=== PATIENT | female | born 1960 | race Two or more races ===

== ENCOUNTER 2018-06-16 07:30 | Outpatient (CLI) | payer OTHER ==
[~2018-06-16 07:30] MED LIST: MECLIZINE HCL25 MG PO; PERCOCET 5/3251 TAB PO
== END 2018-06-16 08:51 | disposition home or self-care (01) ==
LOC: LAB 07:30
DX: R51 Headache (principal); M62.830 Muscle spasm of back; R06.02 Shortness of breath; I10 Essential (primary) hypertension; Z13.89 Encounter for screening for other disorder

== ENCOUNTER 2018-06-16 07:37 | Outpatient (CLI) | payer OTHER | END 2018-06-16 08:51 | disposition home or self-care (01) | LOC: RAD 07:37 | DX: R51 Headache (principal); M62.830 Muscle spasm of back; R06.02 Shortness of breath ==

== ENCOUNTER 2018-10-06 10:40 | Outpatient (CLI) | payer OTHER | END 2018-10-06 10:51 | disposition home or self-care (01) | LOC: RAD 10:40 | DX: M25.561 Pain in right knee (principal); M25.562 Pain in left knee ==

== ENCOUNTER 2018-10-15 11:24 | Inpatient (IN) | payer OTHER ==
[~2018-10-15] VITALS: Ht 167.6 cm; Wt 98.9 kg
[2018-10-30] MEDS ORDERED: LOSARTAN-HCTZ1 EACH PO (07:58)
[2018-11-14] MEDS ORDERED: NORFLEX100MG PO (09:53)
[2018-11-14] MEDS ORDERED: OXYC1TAB9 PO (09:53)
[2018-11-14] MEDS ORDERED: NeurRONTin 100mg cap PO (09:53)
[2018-11-14] MEDS ORDERED: XARELTO10 MG PO (09:53)
== END 2018-11-14 18:16 | disposition home or self-care (01) | DRG 470 ==
LOC: O/R 11-11 06:19 → SURG 11-11 06:19 → SURH 11-11 07:15 → SURG 11-11 12:03
PROVIDERS: ADMIT Orthopaedic Surgery
PROC: 0SRC0J9 Replacement of Right Knee Joint with Synthetic Substitute, Cemented, Open Approach (ICD-10-PCS; principal; 2018-11-11 09:45)
DX: M17.11 Unilateral primary osteoarthritis, right knee (principal); D62 Acute posthemorrhagic anemia; G51.0 Bell's palsy; M54.89 Other dorsalgia; I10 Essential (primary) hypertension

== ENCOUNTER 2018-10-25 07:19 | Outpatient (CLI) | payer OTHER | END 2018-10-25 07:31 | disposition home or self-care (01) | LOC: LAB 07:19 | DX: D68.8 Other specified coagulation defects (principal); E78.2 Mixed hyperlipidemia; N39.0 Urinary tract infection, site not specified; R07.89 Other chest pain ==

== ENCOUNTER 2019-01-24 08:29 | Outpatient (CLI) | payer OTHER ==
[~2019-01-24 08:29] MED LIST changes: +LOSARTAN-HCTZ1 EACH PO; +NORFLEX100MG PO; +NeurRONTin 100mg cap PO; +OXYC1TAB9 PO; +XARELTO10 MG PO
== END 2019-01-24 09:01 | disposition home or self-care (01) ==
LOC: RAD 08:29
DX: M25.561 Pain in right knee (principal); M25.562 Pain in left knee

== ENCOUNTER 2019-05-14 16:49 | Outpatient (CLI) | payer OTHER | END 2019-05-14 17:17 | disposition home or self-care (01) | LOC: RAD 16:49 | DX: M54.5 Low back pain (principal); M79.671 Pain in right foot; G62.89 Other specified polyneuropathies; M25.551 Pain in right hip; M25.552 Pain in left hip ==

== ENCOUNTER → 2019-10-21 07:08 | Outpatient (CLI) | payer OTHER | END | disposition home or self-care (01) | LOC: LAB 07:08 | DX: I10 Essential (primary) hypertension (principal); Z76.0 Encounter for issue of repeat prescription; Z13.220 Encounter for screening for lipoid disorders; Z13.1 Encounter for screening for diabetes mellitus; Z12.11 Encounter for screening for malignant neoplasm of colon; Z12.39 Encounter for other screening for malignant neoplasm of breast ==

== ENCOUNTER 2019-11-19 13:10 | Outpatient (CLI) | payer OTHER | END 2019-11-19 13:20 | disposition home or self-care (01) | LOC: RAD 13:10 | DX: E78.2 Mixed hyperlipidemia (principal); M25.562 Pain in left knee; E11.69 Type 2 diabetes mellitus with other specified complication; M79.671 Pain in right foot ==

== ENCOUNTER 2020-04-04 12:38 | Outpatient (CLI) | payer OTHER | END 2020-04-04 12:50 | disposition home or self-care (01) | LOC: RAD 12:38 | PROVIDERS: ATTEND Physical Medicine & Rehabilitation | DX: M75.31 Calcific tendinitis of right shoulder (principal) ==

== ENCOUNTER 2020-09-22 06:24 | Outpatient (CLI) | payer OTHER | END 2020-09-22 06:37 | disposition home or self-care (01) | LOC: LAB 06:24 | PROVIDERS: ATTEND Internal Medicine | DX: I11.9 Hypertensive heart disease without heart failure (principal); Z12.11 Encounter for screening for malignant neoplasm of colon; E11.9 Type 2 diabetes mellitus without complications; E66.09 Other obesity due to excess calories; E55.9 Vitamin D deficiency, unspecified; M54.5 Low back pain; R94.5 Abnormal results of liver function studies; E78.00 Pure hypercholesterolemia, unspecified ==

== ENCOUNTER 2020-12-23 06:50 | Outpatient (CLI) | payer OTHER | END 2020-12-23 07:00 | disposition home or self-care (01) | LOC: LAB 06:50 | PROVIDERS: ATTEND Internal Medicine | DX: E78.89 Other lipoprotein metabolism disorders (principal); N39.8 Other specified disorders of urinary system ==

== ENCOUNTER 2021-04-03 10:57 | Emergency (ER) | payer OTHER ==
[~2021-04-03] VITALS: Ht 165.1 cm; Wt 98.9 kg
[2021-04-03] MEDS ORDERED: FORTAMET500 MG PO (11:30)
[2021-04-03] MEDS ORDERED: ATACAND16 MG PO (11:30)
[2021-04-03] MEDS ORDERED: ULTRAM50 MG PO (16:50)
[2021-04-03] MEDS ORDERED: SKELAXIN800 MG PO (16:50)
== END 2021-04-03 17:42 ==
LOC: ER 10:57
DX: R10.31 Right lower quadrant pain (principal); M54.5 Low back pain

== ENCOUNTER → 2021-04-12 09:01 | Outpatient (CLI) | payer OTHER ==
[~2021-04-12 09:01] MED LIST changes: +ATACAND16 MG PO; +FORTAMET500 MG PO; +SKELAXIN800 MG PO; +ULTRAM50 MG PO
== END | disposition home or self-care (01) ==
LOC: LAB 09:01
PROVIDERS: ATTEND General Practice
DX: N39.0 Urinary tract infection, site not specified (principal)

== ENCOUNTER → 2021-06-28 06:11 | Outpatient (CLI) | payer OTHER | END | disposition home or self-care (01) | LOC: LAB 06:11 | PROVIDERS: ATTEND General Practice | DX: E11.9 Type 2 diabetes mellitus without complications (principal); M62.830 Muscle spasm of back; M79.605 Pain in left leg; M79.604 Pain in right leg; Z13.89 Encounter for screening for other disorder; Z13.220 Encounter for screening for lipoid disorders; Z12.11 Encounter for screening for malignant neoplasm of colon ==

== ENCOUNTER 2023-11-22 07:31 | Outpatient (CLI) | payer OTHER | END 2023-11-22 07:40 | disposition home or self-care (01) | LOC: SONOGRAMA 07:31 | PROVIDERS: ATTEND General Practice | DX: R22.31 Localized swelling, mass and lump, right upper limb (principal); Z76.0 Encounter for issue of repeat prescription; M79.631 Pain in right forearm ==

== ENCOUNTER 2024-04-02 12:34 | Emergency (ER) | payer OTHER ==
[~2024-04-02] VITALS: Ht 165.1 cm; Wt 97.1 kg
[2024-04-02] MEDS ORDERED: GLUMETZA500 MG PO (13:42)
[2024-04-02] MEDS ORDERED: MECLIZINE HCL12.5 MG PO (14:22)
== END 2024-04-02 14:29 | disposition home or self-care (01) ==
LOC: ER 12:36
DX: R42 Dizziness and giddiness (principal)

== ENCOUNTER 2024-09-22 10:12 | Emergency (ER) | payer OTHER ==
[~2024-09-22] VITALS: Ht 165.1 cm; Wt 98.9 kg
[~2024-09-22 10:12] MED LIST changes: +GLUMETZA500 MG PO; +MECLIZINE HCL12.5 MG PO
[2024-09-22] MEDS ORDERED: CETIRIZINE HCL 5MG/5ML BLIST.PACK PO ONE (11:28)
[2024-09-22] MEDS ORDERED: GUAIFEN/DEXTROMETHORPHAN/PE 10 ML BLIST.PACK PO ONE ×2 (11:28→11:30)
[2024-09-22] MEDS ORDERED: ACETAMINOPHEN 500 MG GEL..CAP PO ONE ×2 (11:28→11:30)
[2024-09-22] MEDS ORDERED: CETIRIZINE HCL 5 MG/5 ML ML PO ONE (11:30)
== END 2024-09-22 12:33 | disposition home or self-care (01) ==
LOC: ER 10:14
DX: U07.1 COVID-19 (principal); Z88.6 Allergy status to analgesic agent; I10 Essential (primary) hypertension

== ENCOUNTER → 2024-11-07 08:45 | Outpatient (CLI) | payer OTHER ==
[2024-11-07 10:22] LABS: PH,URINE 7.5 (5.0-8.0); URINE APPEARANCE Clear; URINE BILIRRUBIN Negative (NEGATIVE); URINE BLOOD Negative; URINE COLOR Yellow; URINE GLUCOSE Negative (NEGATIVE); URINE KETONE Negative (NEGATIVE); URINE LEUKOCYTE Negative; URINE NITRATE Negative; URINE PROTEIN Negative (NEGATIVE); URINE UROBILINOGEN 0.2 E.U./dl
[2024-11-07 10:25] LABS: URINE EPITHELIAL CELLS 7.9 uL (0.0-38.8); URINE RBC 15.1 uL (0.0-20.8)
[2024-11-07 10:36] LABS: HEMOGLOBIN 13.8 g/dL (12.0-15.00); MEAN CELL VOLUME 82.3 fL (80.00-100.00); MEAN CORPUSCULAR HEMOGLOBIN 28.5 pg (27.00-32.0); MEAN CORPUSCULAR HGB CONC 34.6 g/dl (32.0-36.0); PLATELET COUNT 276 K/uL (150-450); RED BLOOD COUNT 4.86 M/uL (4.00-6.00); RED CELL DISTRIBUTION WIDTH 14.1 % (11.5-14.5)
[2024-11-07 10:49] LABS: URINE CAST 0.14 uL (0.0-1.40); URINE WBC 1.2 uL (0.0-23.2)
[2024-11-07 11:00] LABS: ERYTHROCYTE SEDIMENTATION RATE 16 mm/hr
[2024-11-07 11:28] LABS: ALBUMIN 3.7 gm/dL (3.4-5.0); BILIRUBIN TOTAL 0.63 mg/dL (0.3-1.2); CALCIUM 9.1 mg/dL (8.5-10.1); CREATININE SERUM 0.5 mg/dL (0.55-1.02); GFR 125.02; GLOBULINA 3.3 G/DL (2.4-3.5); POTASSIUM 4.08 mEq/L (3.5-5.1); TSH 0.882 uIU/mL (0.358-3.74)
[2024-11-07 11:39] LABS: C-REACTIVE PROTEIN 1.22 MG/DL (0.00-0.29)
== END | disposition home or self-care (01) ==
LOC: LAB 08:45
DX: L50.0 Allergic urticaria (principal); J30.89 Other allergic rhinitis; E03.8 Other specified hypothyroidism; M32.9 Systemic lupus erythematosus, unspecified; M06.08 Rheumatoid arthritis without rheumatoid factor, vertebrae; N39.0 Urinary tract infection, site not specified; Z13.220 Encounter for screening for lipoid disorders; Z13.1 Encounter for screening for diabetes mellitus

== ENCOUNTER 2025-03-29 09:52 | Outpatient (CLI) | payer OTHER | END 2025-03-29 09:54 | disposition home or self-care (01) | LOC: NUCLEAR 09:52 | DX: Z13.820 Encounter for screening for osteoporosis (principal); M81.0 Age-related osteoporosis without current pathological fracture ==